=== PATIENT | female | born 1965 | race African-American/Black ===

== ENCOUNTER 2021-12-12 04:52 | Emergency (ER) | payer MEDICAID ==
--- NOTE | 2021-12-12 05:20 | NUR ---
CALLED FOR TRIAGE. NO ANSWER
--- NOTE | 2021-12-12 05:26 | NUR ---
CALLED FOR TRIAGE. NO ONE IN THE WAITING AREA
--- NOTE | 2021-12-12 05:35 | NUR ---
CALLED FOR TRIAGE. NO ANSWER
== END 2021-12-12 05:58 | disposition left against medical advice (07) ==
LOC: ER 04:56
DX: Z53.21 Procedure and treatment not carried out due to patient leaving prior to being seen by health care provider (principal)